=== PATIENT | male | born 1935 | race Caucasian/White ===

== ENCOUNTER 2017-03-30 06:15 | Emergency (ER) | payer MEDICARE, OTHER ==
[2017-03-30] MEDS ORDERED: HYDROmorphone 0.5 MG/0.5 ML Syringe ONE (06:52)
[2017-03-30] MEDS ORDERED: Ondansetron 4 MG/2 ML SDV ONE (06:52)
--- NOTE | 2017-03-30 14:17 | CT ---
CT abdomen and pelvis Technique: Multiple axial sections were obtained from above the kidneys inferiorly through the pubic symphysis. Intravenous and oral contrast was not utilized. Study has been performed as a ureteral stone protocol. Findings: Small calcifications are seen within the kidneys which are felt to represent combination of vascular calcification and nonobstructing renal calculi. No ureteral dilatation is seen. Cyst is identified within the upper left kidney measuring approximately 2.0 cm. Visualized portions of the liver and visualized portions of the spleen appear within normal limits. Surgical clips are seen from prior cholecystectomy. Pancreas appears within normal limits. Adrenal glands show no nodule. Aorta shows atherosclerotic change which continues into branch vessels and into the iliac vessels. No aneurysm is seen. Mesh material is seen anteriorly within the abdominal wall. Surgical clips are seen within the anterior abdomen. Surgical clips are also seen within the pelvis. Previous hemicolectomy is seen involving the transverse and left colon. Small abdominal wall hernia is seen to the right lateral side of the upper pelvis containing a loop of bowel. This does not appear to cause any bowel obstruction. Pelvic structures appear within normal limits. Prostate gland mildly enlarged. Bone window settings show scattered degenerative change within the spine. Impression: 1. No ureteral dilatation or ureteral stone is seen. 2. Nonobstructing renal calculi as well as vascular calcification within both kidneys. 3. Small lateral abdominal wall hernia on the right side within the upper right pelvis containing a loop of bowel. No bowel dilatation is seen and this small hernia is felt to cause no strangulation. 4. Previous abdominal surgery and other incidental findings. Diagnostic code #2 I agree with preliminary report issued by [facility] ([facility] preliminary report dictated on 03/30/17, 8:44 AM Central Time)
--- NOTE | 2017-04-02 08:15 | EDM.PDOC ---
ED HPI GENERAL MEDICAL PROBLEM - General Chief Complaint: Flank Pain Stated Complaint: BACK PAIN Time Seen by Provider: 03/30/17 07:00 Source of Information: Reports: Patient, Family History Limitations: Reports: No Limitations - History of Present Illness INITIAL COMMENTS - FREE TEXT/NARRATIVE: The patient presents with bilateral flank pain. This has been going on for months but the past few days it has gotten worse. He has renal failure and he is on dialysis. He went to dialysis this morning and had more pain and he did not think he could lay for the dialysis run so he came to the ER to be evaluated. He does not remember hurting his back. He has no fever, chills, cough, congestion, runny nose, chest pain, shortness of breath, abdominal pain, nausea or vomiting. He still makes urine and he has no hematuria or dysuria. He has no numbness or weakness. He has no bowel or bladder problems. Onset: Gradual Duration: Week(s): Location: Reports: Back (Both flanks) Quality: Reports: Sharp Severity: Moderate Improves with: Reports: None Worsens with: Reports: Movement Associated Symptoms: Reports: No Other Symptoms - Related Data Allergies Allergy/AdvReac Type Severity Reaction Status Date / Time morphine Allergy Confusion Verified 04/23/16 13:43 Home Meds: Home Meds Allopurinol [Zyloprim] 150 mg PO DAILY 04/23/16 [History] Aspirin [Halfprin] 324 mg PO BRK 04/23/16 [History] Clopidogrel Bisulfate [Plavix] 75 mg PO DAILY 04/23/16 [History] Metoprolol Tartrate [Lopressor] 12.5 mg PO BID 04/23/16 [History] Sevelamer Carbonate [Renvela] 800 mg PO TID 04/23/16 [History] amLODIPine [Norvasc] 5 mg PO DAILY 04/23/16 [History] Past Medical History HEENT History: Reports: Impaired Vision Cardiovascular History: Reports: Hypertension, Stents Other Cardiovascular History: pt had stent placement about 2 weeks ago Respiratory History: Reports: Other (See Below) Other Respiratory History: pleurisy Genitourinary History: Reports: Dialysis, Renal Disease - Infectious Disease History Infectious Disease History: Reports: Chicken Pox, Measles, Mumps - Past Surgical History GI Surgical History: Reports: Appendectomy Social & Family History - Tobacco Use Smoking Status *Q: Never Smoker - Caffeine Use Caffeine Use: Reports: None - Recreational Drug Use Recreational Drug Use: No ED ROS GENERAL - Review of Systems Review Of Systems: See Below Constitutional: Reports: No Symptoms HEENT: Reports: No Symptoms Respiratory: Reports: No Symptoms Cardiovascular: Reports: No Symptoms Endocrine: Reports: No Symptoms GI/Abdominal: Reports: No Symptoms : Reports: No Symptoms Musculoskeletal: Reports: Back Pain ED EXAM,LOWER BACK PAIN/INJURY - Physical Exam Exam: See Below Exam Limited By: No Limitations General Appearance: Alert, No Apparent Distress Ears: Normal External Exam Nose: Normal Inspection Head: Atraumatic, Normocephalic Neck: Normal Inspection Respiratory/Chest: No Respiratory Distress, Lungs Clear, Normal Breath Sounds Cardiovascular: Regular Rate, Rhythm, No Edema, No Murmur GI/Abdominal: Soft, Non-Tender, No Organomegaly, No Mass Back Exam: Other (Pain upon palpation to the lumbar and mid back) Extremities: Normal Inspection Neurological: Alert, No Motor/Sensory Deficits, Oriented x 3 Course - Orders/Labs/Meds Labs: Laboratory Tests 03/30/17 03/30/17 Range/Units 06:45 06:45 WBC 4.63 (4.23-9.07) K/mm3 RBC 3.35 L (4.63-6.08) M/mm3 Hgb 10.9 L (13.7-17.5) gm/L Hct 32.6 L (40.1-51.0) % MCV 97.3 H (79.0-92.2) fl MCH 32.5 H (25.7-32.2) pg MCHC 33.4 (32.2-35.5) g/dl RDW Std Deviation 44.2 H (35.1-43.9) fL Plt Count 176 (163-337) K/mm3 MPV 10.3 (9.4-12.3) fl Neut % (Auto) 60.1 (34.0-67.9) % Lymph % (Auto) 25.9 (21.8-53.1) % [place] % (Auto) 8.2 (5.3-12.2) % Eos % (Auto) 5.2 (0.8-7.0) Baso % (Auto) 0.4 (0.1-1.2) % Neut # (Auto) 2.78 (1.78-5.38) K/mm3 Lymph # (Auto) 1.20 L (1.32-3.57) K/mm3 [place] # (Auto) 0.38 (0.30-0.82) K/mm3 Eos # (Auto) 0.24 (0.04-0.54) K/mm3 Baso # (Auto) 0.02 (0.01-0.08) K/mm3 Sodium 142 (136-145) mEq/L Potassium 4.2 (3.5-5.1) mEq/L Chloride 106 (98-107) mEq/L Carbon Dioxide 20 L (21-32) mEq/L Anion Gap 20.2 H (5-15) BUN 86 H (7-18) mg/dL Creatinine 9.7 H (0.7-1.3) mg/dL Est Cr Clr Drug Dosing TNP Estimated GFR (MDRD) 5 (>60) mL/min BUN/Creatinine Ratio 8.9 L (14-18) Glucose 178 H (83-115) mg/dL Calcium 9.6 (8.5-10.1) mg/dL Total Bilirubin 0.2 (0.2-1.0) mg/dL AST 35 (15-37) U/L ALT 38 (16-63) U/L Alkaline Phosphatase 122 H (46-116) U/L Total Protein 7.0 (6.4-8.2) g/dl Albumin 3.2 L (3.4-5.0) g/dl Globulin 3.8 gm/dL Albumin/Globulin Ratio 0.8 L (1-2) Meds: Medications Discontinued Medications Generic Name Dose Route Start Last Admin Trade Name Freq PRN Reason Stop Dose Admin Hydromorphone HCl Confirm 03/30/17 06:52 Dilaudid Administered 03/30/17 06:53 Dose 0.5 mg .ROUTE .STK-MED ONE Ondansetron HCl Confirm 03/30/17 06:52 Zofran Administered 03/30/17 06:53 Dose 4 mg .ROUTE .STK-MED ONE - Re-Assessments/Exams Free Text/Narrative Re-Assessment/Exam: 04/02/17 08:15 I took over for Dr Rylie Lal. I ordered an IV, labs, and a CT of his abdomen and pelvis without contrast to look for a kidney stone. His WBC was normal. his Hgb was low at 10.9. His creatinine was elevated at 9.7. His BUN was elevated at 86. His glucose was elevated at 178. His alk phos was elevated at 122. The CT shows no ureteral dilatation or ureteral stone is seen. Nonobstructing renal calculi as well as vascular calcification within both kidneys. Small lateral abdominal wall hernia on the right side within the upper right pelvis containing a loop of bowel. No bowel dilatation is seen and this small hernia is felt to cause no strangulation. Previous abdominal surgery and other incidental findings. He did get something for pain and he feels better. I will discharge him back to dialysis. They are ready for him. 04/02/17 08:20 I gave him a prescription for flexeril and some hydrocodone. Departure - Departure Time of Disposition: 12:00 Disposition: Home, Self-Care 01 Condition: Good Clinical Impression: Chronic kidney disease with end stage renal failure on dialysis, Abdominal wall hernia Low back pain Qualifiers: Chronicity: acute Back pain laterality: bilateral Sciatica presence: without sciatica Qualified Code(s): M54.5 - Low back pain - Discharge Information Referrals: Phillip Simmons MD [Primary Care Provider] - Forms: ED Department Discharge Additional Instructions: See hand written discharge instructions.
== END 2017-03-30 08:15 | disposition home or self-care (01) ==
LOC: JD.ED 06:15
DX: I12.0 Hypertensive chronic kidney disease with stage 5 chronic kidney disease or end stage renal disease (principal); N18.6 End stage renal disease; M54.5 Low back pain; Z99.2 Dependence on renal dialysis; K43.9 Ventral hernia without obstruction or gangrene; Z95.5 Presence of coronary angioplasty implant and graft; Z79.82 Long term (current) use of aspirin; Z79.02 Long term (current) use of antithrombotics/antiplatelets; Z79.899 Other long term (current) drug therapy; Z88.5 Allergy status to narcotic agent
CPT/HCPCS: 36415; 74176; 80053; 85025; 96374; 96375; 99284; J1170; J2405; 99283

== ENCOUNTER 2019-03-29 06:51 | Emergency (ER) | payer MEDICARE, OTHER ==
[2019-03-29] MEDS ORDERED: Sodium Chloride 0.9% 1,000 ML IV STA (07:32)
[2019-03-29] MEDS ORDERED: Ondansetron 4 MG/2 ML SDV IVPUSH ONE (07:32)
[2019-03-29] MEDS ORDERED: Sodium Chloride 0.9% 10 ML Syringe FLUSH PRN (07:32)
[2019-03-29] MEDS ORDERED: HYDROmorphone 0.5 MG/0.5 ML Syringe IVPUSH ONE ×3 (07:33→09:30)
[2019-03-29] MEDS ORDERED: Diatrizoate Meglumine/Diatrizoate Sodium 37% 120 ML Bottle PO ONE (07:40)
[2019-03-29] MEDS ORDERED: Sodium Chloride 0.9% 500 ML IV ONE (07:45)
--- NOTE | 2019-03-29 08:03 | EDM.PDOC ---
ED HPI GENERAL MEDICAL PROBLEM - General Chief Complaint: Abdominal Pain Stated Complaint: ABD PAIN Time Seen by Provider: 03/29/19 07:29 Source of Information: Reports: Patient History Limitations: Reports: No Limitations - History of Present Illness INITIAL COMMENTS - FREE TEXT/NARRATIVE: The patient presents with left lower abdominal pain. He ate some peanuts last night and shortly after he had left lower abdominal pain. The pain is constant and severe. He has nausea and vomiting. He has no fever or chills. He has no chest pain or shortness of breath. He has no diarrhea. He has a history of diverticulitis. He also has renal failure and he is on dialysis. He gets dialysis on Wednesday, and Wednesday. Onset: Sudden Duration: Day(s): (Last night) Location: Reports: Abdomen Quality: Reports: Sharp Severity: Severe Improves with: Reports: None Worsens with: Reports: None Associated Symptoms: Reports: Nausea/Vomiting. Denies: Chest Pain, Cough, Fever /Chills, Headaches, Shortness of Breath Left Abdomen Pain Score (Numeric/FACES): 2 - Related Data Allergies Allergy/AdvReac Type Severity Reaction Status Date / Time morphine Allergy Confusion Verified 03/29/19 07:19 Home Meds: Home Meds Allopurinol [Zyloprim] 300 mg PO DAILY 04/23/16 [History] Aspirin [Halfprin] 81 mg PO BRK 04/23/16 [History] Clopidogrel Bisulfate [Plavix] 75 mg PO DAILY 04/23/16 [History] Metoprolol Tartrate [Lopressor] 25 mg PO BID 04/23/16 [History] Sevelamer Carbonate [Renvela] 2,400 mg PO TID 04/23/16 [History] amLODIPine [Norvasc] 5 mg PO DAILY 04/23/16 [History] Cinacalcet [Sensipar] 30 mg PO DAILY 07/15/17 [History] Past Medical History HEENT History: Reports: Impaired Vision Other HEENT History: wears eyeglasses. Cardiovascular History: Reports: Hypertension, Stents Other Cardiovascular History: pt had stent placement about 2 weeks ago Respiratory History: Reports: Other (See Below) Other Respiratory History: pleurisy Gastrointestinal History: Reports: Diverticulosis Genitourinary History: Reports: Dialysis, Prostate Disorder, Renal Disease Other Genitourinary History: inherited kidney disease. Dialysis [facility]. Radiation for prostate cancer. Hematologic History: Reports: Iron Deficiency Oncologic (Cancer) History: Reports: Prostate - Infectious Disease History Infectious Disease History: Reports: Chicken Pox, Measles, Mumps - Past Surgical History GI Surgical History: Reports: Appendectomy, Cholecystectomy, Colonoscopy, Other (See Below) Other GI Surgeries/Procedures: removed part of colon due to diverticulitis. Musculoskeletal Surgical History: Reports: Knee Replacement Social & Family History - Tobacco Use Smoking Status *Q: Never Smoker Second Hand Smoke Exposure: No - Caffeine Use Caffeine Use: Reports: Soda - Recreational Drug Use Recreational Drug Use: No ED ROS GENERAL - Review of Systems Review Of Systems: See Below Constitutional: Reports: No Symptoms HEENT: Reports: No Symptoms Respiratory: Reports: No Symptoms Cardiovascular: Reports: No Symptoms Endocrine: Reports: No Symptoms GI/Abdominal: Reports: Abdominal Pain, Nausea, Vomiting. Denies: Diarrhea : Reports: No Symptoms Musculoskeletal: Reports: No Symptoms Skin: Reports: No Symptoms ED EXAM, GI/ABD - Physical Exam Exam: See Below Exam Limited By: No Limitations General Appearance: Alert, No Apparent Distress Ears: Normal External Exam Nose: Normal Inspection Head: Atraumatic, Normocephalic Neck: Normal Inspection Respiratory/Chest: No Respiratory Distress, Lungs Clear, Normal Breath Sounds Cardiovascular: Regular Rate, Rhythm, No Edema, No Murmur GI/Abdominal Exam: Soft, No Organomegaly, No Mass, Tender (Moderate tenderness to the left upper and lower abdomen) Extremities: No Pedal Edema Neurological: Alert, Oriented, No Motor/Sensory Deficits Course - Vital Signs Last Recorded V/S: Last Vital Signs Temp 98.5 F 03/29/19 09:45 Pulse 80 03/29/19 09:45 Resp 20 03/29/19 09:45 BP 160/58 H 03/29/19 09:45 Pulse Ox 98 03/29/19 09:45 - Orders/Labs/Meds Orders: Active Orders 24 hr Category Date Time Status Peripheral IV Care [RC] . DIRECTED Care 03/29/19 07:32 Active Sodium Chloride 0.9% [Saline Flush] Med 03/29/19 07:32 Active 10 ml FLUSH ASDIRECTED PRN ED Antiemetic Medication Reflex [OM.PC] Stat Oth 03/29/19 07:32 Ordered NG [Nasogastric Orogastric Tube Insertion] [OM.PC] Oth 03/29/19 09:51 Ordered Routine Peripheral IV Insertion Adult [OM.PC] Stat Ot 03/29/19 07:32 Ordered Medication Orders Sodium Chloride (Saline Flush) 10 ml FLUSH ASDIRECTED PRN PRN Reason: Keep Vein Open Labs: Laboratory Tests 03/29/19 03/29/19 Range/Units 07:15 07:15 WBC 9.62 H (4.23-9.07) K/mm3 RBC 3.61 L (4.63-6.08) M/mm3 Hgb 11.0 L (13.7-17.5) gm/dl Hct 34.0 L (40.1-51.0) % MCV 94.2 H D (79.0-92.2) fl MCH 30.5 (25.7-32.2) pg MCHC 32.4 (32.2-35.5) g/dl RDW Std Deviation 45.7 H (35.1-43.9) fL Plt Count 329 D (163-337) K/mm3 MPV 10.5 (9.4-12.3) fl Neut % (Auto) 82.7 H (34.0-67.9) % Lymph % (Auto) 11.5 L (21.8-53.1) % [place] % (Auto) 5.3 (5.3-12.2) % Eos % (Auto) 0.1 L (0.8-7.0) Baso % (Auto) 0.2 (0.1-1.2) % Neut # (Auto) 7.95 H (1.78-5.38) K/mm3 Lymph # (Auto) 1.11 L (1.32-3.57) K/mm3 [place] # (Auto) 0.51 (0.30-0.82) K/mm3 Eos # (Auto) 0.01 L (0.04-0.54) K/mm3 Baso # (Auto) 0.02 (0.01-0.08) K/mm3 Sodium 139 (136-145) mEq/L Potassium 5.0 (3.5-5.1) mEq/L Chloride 100 (98-107) mEq/L Carbon Dioxide 25 (21-32) mEq/L Anion Gap 19.0 H (5-15) BUN 56 H D (7-18) mg/dL Creatinine 6.6 H D (0.7-1.3) mg/dL Est Cr Clr Drug Dosing 8.87 mL/min Estimated GFR (MDRD) 8 (>60) mL/min BUN/Creatinine Ratio 8.5 L (14-18) Glucose 164 H (83-115) mg/dL Calcium 10.2 H (8.5-10.1) mg/dL Total Bilirubin 0.4 (0.2-1.0) mg/dL AST 20 (15-37) U/L ALT 19 (16-63) U/L Alkaline Phosphatase 219 H (46-116) U/L Total Protein 8.3 H (6.4-8.2) g/dl Albumin 4.0 (3.4-5.0) g/dl Globulin 4.3 gm/dL Albumin/Globulin Ratio 0.9 L (1-2) Lipase 295 (73-393) U/L Meds: Medications Generic Name Dose Route Start Last Admin Trade Name Freq PRN Reason Stop Dose Admin Sodium Chloride 10 ml 03/29/19 07:32 Saline Flush FLUSH ASDIRECTED PRN Keep Vein Open Discontinued Medications Generic Name Dose Route Start Last Admin Trade Name Freq PRN Reason Stop Dose Admin Diatrizoate Meglum/Diatrizoate Sod 90 ml 03/29/19 07:40 03/29/19 09:07 Gastrografin 37% PO 03/29/19 07:41 90 ml ONETIME ONE Administration Hydromorphone HCl 0.5 mg 03/29/19 07:33 03/29/19 07:37 Dilaudid IVPUSH 03/29/19 07:34 0.5 mg ONETIME ONE Administration Hydromorphone HCl 0.5 mg 03/29/19 08:00 03/29/19 08:04 Dilaudid IVPUSH 03/29/19 08:01 0.5 mg ONETIME ONE Administration Hydromorphone HCl 0.5 mg 03/29/19 09:30 03/29/19 09:40 Dilaudid IVPUSH 03/29/19 09:31 0.5 mg ONETIME ONE Administration Sodium Chloride 1,000 mls @ 1,000 mls/hr 03/29/19 07:32 03/29/19 07:43 Normal Saline IV 03/29/19 08:31 1,000 mls/hr .BOLUS STA Administration Sodium Chloride 500 mls @ 500 mls/hr 03/29/19 07:45 Normal Saline IV 03/29/19 08:44 .BOLUS ONE Ondansetron HCl 4 mg 03/29/19 07:32 03/29/19 07:35 Zofran IVPUSH 03/29/19 07:33 4 mg ONETIME ONE Administration - Re-Assessments/Exams Free Text/Narrative Re-Assessment/Exam: 03/29/19 08:03 I ordered an IV NS 500ml bolus, zofran 4mg IV, dilaudid 0.5mg IV, labs, UA and a CT of his abdomen and pelvis without IV contrast but with oral contrast. He started drinking the contrast and he had more pain so I ordered dilaudid 0.5mg IV and I will have him try to drink more. If he cannot, then I will do it without contrast. 03/29/19 09:[address] shows dilated small bowel into the left pelvis. Surrounding inflammatory change noted around portions of the mid and distal small bowel within the left abdomen. Surgical clips are seen in the area of transition. Obstruction most likely due to adhesions. Diffusely sclerotic spine with scattered lytic lesions. Findings most likely due to osseous metastatic disease. Other findings believed to be incidental as described above. 03/29/19 10:03 I have ordered an NG tube. The patient has a history of prostate cancer and was treated with chemo and radiation years ago. He did have a follow up appointment last Wednesday, but he missed it because he was sick. I cannot admit him here because he is in renal failure and the nephrologists want their patients in [place] if they are to be admitted. I called [facility] in [place]. 03/29/19 10:08 His WBC is elevated at 9.62. His Hgb is low at 11. His anion gap is elevated at 19. His BUN is elevated at 56. His creatinine is elevated at 6.6. His glucose is elevated at 164. His alk phos is elevated at 219. His lipase is negative. 03/29/19 10:[address] Morales the hospitalist leather production machine operator and she accepted the patient. She wanted me to ask code status and the patient is full code. Departure - Departure Time of Disposition: 10:45 Disposition: DC/Tfer to Acute Hospital 02 Condition: Poor Clinical Impression: Small bowel obstruction, Osteolytic lesion due to metastasis - Discharge Information Referrals: Goyo Ugarte MD [Primary Care Provider] - Forms: ED Department Discharge Sepsis Event Note - Evaluation Sepsis Screening Result: No Definite Risk - Focused Exam Vital Signs: Vital Signs Temp Pulse Resp BP Pulse Ox 03/29/19 09:45 98.5 F 80 20 160/58 H 98 03/29/19 07:05 97.6 F 88 20 181/82 H 100 Date Exam was Performed: 03/29/19 Time Exam was Performed: 10:42 - My Orders Last 24 Hours: My Active Orders 03/29/19 07:32 Peripheral IV Care [RC] . DIRECTED Sodium Chloride 0.9% [Saline Flush] 10 ml FLUSH ASDIRECTED PRN ED Antiemetic Medication Reflex [OM.PC] Stat Peripheral IV Insertion Adult [OM.PC] Stat 03/29/19 09:51 NG [Nasogastric Orogastric Tube Insertion] [OM.PC] Routine - Assessment/Plan Last 24 Hours: My Active Orders 03/29/19 07:32 Peripheral IV Care [RC] . DIRECTED Sodium Chloride 0.9% [Saline Flush] 10 ml FLUSH ASDIRECTED PRN ED Antiemetic Medication Reflex [OM.PC] Stat Peripheral IV Insertion Adult [OM.PC] Stat 03/29/19 09:51 NG [Nasogastric Orogastric Tube Insertion] [OM.PC] Routine
--- NOTE | 2019-03-29 09:43 | CT ---
CT abdomen and pelvis Technique: Multiple axial sections were obtained from above the dome of the diaphragm inferiorly through the pubic symphysis. Intravenous contrast not utilized. Oral contrast has been given. Comparison: Previous CT abdomen and pelvis exam of 03/30/17. Findings: Visualized lung bases show nothing acute. Noncontrast appearance of the liver and spleen appears within normal limits. Gastroesophageal reflux of contrast noted within the distal esophagus. Adrenal glands show no nodule. Kidneys are atrophic without hydronephrosis. Pancreas is within normal limits. Surgical clips are seen from prior cholecystectomy. Aorta and iliac vessels show atherosclerotic calcification without aneurysm. No retroperitoneal adenopathy is seen. Appendix not visualized with certainty. Surgical clips are seen within the right lower abdomen. Diffuse small bowel wall dilatation is seen. This occurs down to the left side of the pelvis and is felt compatible with mid to distal small bowel obstruction. There is some inflammatory change being seen around the mid and distal small bowel loops which may relate to the bowel obstruction. Etiology for this bowel obstruction is not visualized and is most likely due to adhesion as some adjacent surgical clips are seen within the left abdomen. No additional abnormality is seen. Small fat-containing inguinal hernias are noted. Bone window settings were reviewed which show diffuse osteosclerotic change throughout the lumbar spine with multiple small lytic lesions. Findings presumably due to metastatic bone disease. Impression: 1. Dilated small bowel into the left pelvis. Surrounding inflammatory change noted around portions of the mid and distal small bowel within the left abdomen. Surgical clips are seen in the area of transition. Obstruction most likely due to adhesions. 2. Diffusely sclerotic spine with scattered lytic lesions. Findings most likely due to osseous metastatic disease. 3. Other findings believed to be incidental as described above. Diagnostic code #9 This report was dictated in [place] Standard Time
[2019-03-29 09:47] VITALS: PULSE 80
[2019-03-29 11:36] VITALS: BP 141/57
== END 2019-03-29 12:02 ==
LOC: JD.ED 06:51
DX: K56.609 Unspecified intestinal obstruction, unspecified as to partial versus complete obstruction (principal); M89.50 Osteolysis, unspecified site; I10 Essential (primary) hypertension; Z90.49 Acquired absence of other specified parts of digestive tract; Z79.82 Long term (current) use of aspirin; Z79.02 Long term (current) use of antithrombotics/antiplatelets; Z79.899 Other long term (current) drug therapy; Z88.5 Allergy status to narcotic agent
CPT/HCPCS: 36415; 43752; 74176; 80053; 81001; 83690; 85025; 96361; 96374; 96375; 96376; 99285; J1170; J2405; J7030; Q9963

== ENCOUNTER 2019-04-15 11:50 | Emergency (ER) | payer MEDICARE, OTHER ==
[2019-04-15] MEDS ORDERED: Sodium Chloride 0.9% 10 ML Syringe FLUSH PRN (12:28)
--- NOTE | 2019-04-15 12:33 | EDM.PDOC ---
ED HPI GENERAL MEDICAL PROBLEM - General Chief Complaint: Gastrointestinal Problem Stated Complaint: VOMITING Time Seen by Provider: 04/15/19 12:20 Source of Information: Reports: Patient, Old Records History Limitations: Reports: No Limitations - History of Present Illness INITIAL COMMENTS - FREE TEXT/NARRATIVE: David is an 83-year-old male who sent over for dialysis following 2 episodes of vomiting and hypotension. Patient was seen in ER on March 29. He was found to have a bowel obstruction. He is a dialysis patient therefore he was sent to [place]. Review of his discharge summary from [facility] in [place] shows that they attempted conservative management with an NG tube. After he failed to improve over [address] Garcia performed an exploratory laparotomy, lysis of adhesions and repair of enterotomy on 31 March. He overall did well and was discharged. He was seen by cardiology and nephrology. Today he presented for dialysis. He had almost is complete run of dialysis, missed about 30 minutes. He developed abdominal pain, 10 out of 10 reportedly and vomited 2 times. Reportedly was hypotensive with the lowest blood pressures 70/40. He states at this time the abdominal pain has resolved after his episodes of emesis. He denies any hematemesis. Denies any diarrhea states that his last bowel movement was last night. States it was pretty loose. No blood in stool. He has been passing gas today. He denies any fevers, lightheadedness, syncope or any chest pain. Primary care provider is Dr. Ugarte Onset: Today, Sudden Location: Reports: Abdomen. Denies: Chest Abdominal Pain Score (Numeric/FACES): 3 - Related Data Allergies Allergy/AdvReac Type Severity Reaction Status Date / Time morphine Allergy Confusion Verified 04/15/19 12:09 Home Meds: Home Meds Aspirin [Halfprin] 81 mg PO BID 04/23/16 [History] Metoprolol Tartrate [Lopressor] 25 mg PO BID 04/23/16 [History] Sevelamer Carbonate [Renvela] 1,600 mg PO TID 04/23/16 [History] amLODIPine [Norvasc] 2.5 mg PO DAILY 04/23/16 [History] Acetaminophen [Tactinal] 650 mg PO Q6H PRN 04/15/19 [History] Cinacalcet [Sensipar] 30 mg PO DAILY 01/04/20 [History] Isosorbide Mononitrate [Imdur] 30 mg PO DAILY 04/15/19 [History] Lisinopril [Zestril] 2.5 mg PO DAILY 04/15/19 [History] Metoclopramide [Reglan] 5 mg PO QID 04/15/19 [History] Nitroglycerin [Nitrostat] 0.4 mg SL ASDIRECTED PRN 04/15/19 [History] Sennosides/Docusate Sodium [Senna-Docusate Sodium Tablet] 2 tab PO DAILY PRN 07/30 [History] Simvastatin [Zocor] 20 mg PO BEDTIME 04/15/19 [History] Past Medical History HEENT History: Reports: Impaired Vision Other HEENT History: wears eyeglasses. Cardiovascular History: Reports: Hypertension, Stents Other Cardiovascular History: pt had stent placement about 2 weeks ago Respiratory History: Reports: Other (See Below) Other Respiratory History: pleurisy Gastrointestinal History: Reports: Bowel Obstruction, Diverticulosis Genitourinary History: Reports: Dialysis, Prostate Disorder, Renal Disease Other Genitourinary History: inherited kidney disease. Dialysis . Radiation for prostate cancer. Hematologic History: Reports: Iron Deficiency Oncologic (Cancer) History: Reports: Prostate - Infectious Disease History Infectious Disease History: Reports: Chicken Pox, Measles, Mumps - Past Surgical History GI Surgical History: Reports: Appendectomy, Cholecystectomy, Colonoscopy, Small Bowel, Other (See Below) Other GI Surgeries/Procedures: removed part of colon due to diverticulitis, bowel obstruction Musculoskeletal Surgical History: Reports: Knee Replacement Social & Family History - Tobacco Use Smoking Status *Q: Never Smoker - Caffeine Use Caffeine Use: Reports: None - Recreational Drug Use Recreational Drug Use: No ED ROS GENERAL - Review of Systems Review Of Systems: See Below Constitutional: Denies: Fever Cardiovascular: Denies: Chest Pain GI/Abdominal: Reports: Abdominal Pain, Diarrhea, Nausea, Vomiting (x2), Other ( + flatus today). Denies: Hematemesis, Hematochezia, Melena ED EXAM, GI/ABD - Physical Exam Exam: See Below Exam Limited By: No Limitations General Appearance: Alert, WD/WN, No Apparent Distress Respiratory/Chest: No Respiratory Distress, Lungs Clear, Normal Breath Sounds Cardiovascular: Normal Peripheral Pulses, Regular Rate, Rhythm, No Murmur GI/Abdominal Exam: Normal Bowel Sounds, Soft, No Distention, Tender (mild tenderness associated with incision from recent surgery, surgical incision is closed with no erythema or drainage) Neurological: Alert, Oriented, Normal Cognition Psychiatric: Normal Affect, Normal Mood Skin Exam: Warm, Dry, Normal Color EKG INTERPRETATION EKG Date: 04/15/19 Time: 12:38 Rhythm: NSR Rate (Beats/Min): 72 [place]: Normal P-Wave: Present QRS: Normal ST-T: Normal QT: Normal EKG Interpretation Comments: NSR of [address] segment changes. Reviewed by myself and Dr. kiser. Course - Vital Signs Last Recorded V/S: Last Vital Signs Temp 97.3 F 04/15/19 15:48 Pulse 77 04/15/19 15:48 Resp 17 04/15/19 15:48 BP 108/46 L 04/15/19 15:48 Pulse Ox 93 L 04/15/19 15:48 - Orders/Labs/Meds Orders: Active Orders 24 hr Category Date Time Status Cardiac Monitoring [RC] . DIRECTED Care 04/15/19 12:28 Active EKG Documentation Completion [RC] ASDIRECTED Care 04/15/19 12:28 Active Peripheral IV Care [RC] . DIRECTED Care 04/15/19 12:28 Active Abdomen Series w Chest 1V [CR] Stat Exams 04/15/19 12:28 Taken Peripheral IV Insertion Adult [OM.PC] Routine Oth 04/15/19 12:28 Ordered EKG 12 Lead [EK] Stat Ther 04/15/19 12:28 Ordered Labs: Laboratory Tests 04/15/19 04/15/19 04/15/19 Range/Units 13:25 13:25 13:25 WBC 8.40 (4.23-9.07) K/mm3 RBC 3.16 L (4.63-6.08) M/mm3 Hgb 9.5 L D (13.7-17.5) gm/dl Hct 30.1 L (40.1-51.0) % MCV 95.3 H (79.0-92.2) fl MCH 30.1 (25.7-32.2) pg MCHC 31.6 L (32.2-35.5) g/dl RDW Std Deviation 44.0 H (35.1-43.9) fL Plt Count 451 H D (163-337) K/mm3 MPV 10.0 (9.4-12.3) fl Neut % (Auto) 73.0 H (34.0-67.9) % Lymph % (Auto) 14.3 L (21.8-53.1) % [place] % (Auto) 10.6 (5.3-12.2) % Eos % (Auto) 1.8 (0.8-7.0) Baso % (Auto) 0.2 (0.1-1.2) % Neut # (Auto) 6.13 H (1.78-5.38) K/mm3 Lymph # (Auto) 1.20 L (1.32-3.57) K/mm3 [place] # (Auto) 0.89 H (0.30-0.82) K/mm3 Eos # (Auto) 0.15 (0.04-0.54) K/mm3 Baso # (Auto) 0.02 (0.01-0.08) K/mm3 Sodium 138 (136-145) mEq/L Potassium 3.6 (3.5-5.1) mEq/L Chloride 96 L (98-107) mEq/L Carbon Dioxide 31 (21-32) mEq/L Anion Gap 14.6 (5-15) BUN 18 D (7-18) mg/dL Creatinine 4.5 H D (0.7-1.3) mg/dL Est Cr Clr Drug Dosing 13.01 mL/min Estimated GFR (MDRD) 13 (>60) mL/min BUN/Creatinine Ratio 4.0 L (14-18) Glucose 113 (83-115) mg/dL Calcium 9.0 (8.5-10.1) mg/dL Total Bilirubin 0.2 (0.2-1.0) mg/dL AST 19 (15-37) U/L ALT 17 (16-63) U/L Alkaline Phosphatase 155 H (46-116) U/L Troponin I < 0.017 (0.00-0.056) ng/mL C-Reactive Protein 2.1 H* (<1.0) mg/dL Total Protein 7.9 (6.4-8.2) g/dl Albumin 3.1 L (3.4-5.0) g/dl Globulin 4.8 gm/dL Albumin/Globulin Ratio 0.7 L (1-2) Lipase 1258 H (73-393) U/L Meds: Medications Discontinued Medications Generic Name Dose Route Start Last Admin Trade Name Freq PRN Reason Stop Dose Admin Hydromorphone HCl 0.5 mg 04/15/19 13:37 04/15/19 13:44 Dilaudid IVPUSH 04/15/19 13:38 0.5 mg ONETIME ONE Administration Ondansetron HCl 4 mg 04/15/19 13:38 04/15/19 13:42 Zofran IVPUSH 04/15/19 13:39 4 mg ONETIME ONE Administration Sodium Chloride 10 ml 04/15/19 12:28 04/15/19 13:44 Saline Flush FLUSH 10 ml ASDIRECTED PRN Administration Keep Vein Open - Radiology Interpretation Free Text/Narrative:: flat and upright abdominal xray shows air fluid lines CT abdomen and pelvis Technique: Multiple axial sections were obtained from above the dome of the diaphragm inferiorly through the pubic symphysis. Oral contrast has been given. No intravenous contrast was utilized. Findings: Slightly prominent small bowel loops are noted. Small bowel wall thickening is seen with diffuse surrounding inflammatory change. Some of these findings are seen on prior study but findings have increased in prominence. Findings most likely due to diffuse small bowel enteritis which included an etiology of ischemia and infection. Other findings: Visualized lung bases show nothing acute. Noncontrast appearance of the liver shows no focal abnormality. Extensive coronary artery calcification is partially visualized. Spleen is within normal limits. Diffuse atrophy of the kidneys is noted. Several cysts appear to be present within the kidneys. Pancreas is within normal limits. Aorta shows diffuse atherosclerotic calcification which continues into the iliac vessels. Multiple surgical clips are seen within the abdomen and pelvis. Anterior abdominal wall graft is noted. Small fat-containing right inguinal hernia is noted. No free fluid is seen. Impression: 1. Slightly prominent small bowel loops with wall thickening and surrounding inflammatory change. Findings are mildly increased in prominence from prior exam. Findings most likely represent diffuse small bowel enteritis with differential including infection as well as ischemia. 2. Other findings believed to be nonacute an as described above. Diagnostic code #3 This report was dictated in [place] Standard Time - Re-Assessments/Exams Free Text/Narrative Re-Assessment/Exam: 01/04/20 16:04 flat and upright abdominal xray came back with air-fluid lines. Therefor a CT of the abdomen was ordered. Once he started drinking the contrast complained of abdominal pain therefore 0.5mg of Dilaudid and 4 of Zofran was ordered. He has not had any vomiting since entering the ER. I discussed the patient's CT scan with Dr. Garcia, surgery on-call at [facility] in [place] who cared for him to he was in the hospital in March. she does not feel that this represents an ischemic bowel picture. She feels the changes on his CT are likely from his recent surgery and adhesions. Patient is denying any pain at this time, his abdomen is soft with only mild tenderness. CRP is only mildly elevated. White blood cell count is within normal limits. I do feel that the patient is safe to go home today. We'll discharge him home with close follow-up with his primary care provider. Discharge instructions as documented. Departure - Departure Time of Disposition: 16:13 Disposition: Home, Self-Care 01 Condition: Fair Clinical Impression: Abdominal pain - Discharge Information *PRESCRIPTION DRUG MONITORING PROGRAM REVIEWED*: No *COPY OF PRESCRIPTION DRUG MONITORING REPORT IN PATIENT ODALIS: No Instructions: Abdominal Pain, Adult, [id number] Referrals: Goyo Ugarte MD [Primary Care Provider] - Forms: ED Department Discharge Additional Instructions: Continue with your current medications and plan of care. Follow-up with your PCP Wednesday for a recheck. Please return to the ER should your symptoms change or worsen. Sepsis Event Note - Evaluation Sepsis Screening Result: No Definite Risk - Focused Exam Vital Signs: Vital Signs Temp Pulse Resp BP Pulse Ox 04/15/19 15:48 97.3 F 77 17 108/46 L 93 L 04/15/19 12:06 97.6 F 70 16 125/73 100 Date Exam was Performed: 04/15/19 Time Exam was Performed: 21:21 - My Orders Last 24 Hours: My Active Orders 04/15/19 12:28 Cardiac Monitoring [RC] . DIRECTED EKG Documentation Completion [RC] ASDIRECTED Peripheral IV Care [RC] . DIRECTED Abdomen Series w Chest 1V [CR] Stat Peripheral IV Insertion Adult [OM.PC] Routine EKG 12 Lead [EK] Stat - Assessment/Plan Last 24 Hours: My Active Orders 04/15/19 12:28 Cardiac Monitoring [RC] . DIRECTED EKG Documentation Completion [RC] ASDIRECTED Peripheral IV Care [RC] . DIRECTED Abdomen Series w Chest 1V [CR] Stat Peripheral IV Insertion Adult [OM.PC] Routine EKG 12 Lead [EK] Stat
[2019-04-15] MEDS ORDERED: HYDROmorphone 0.5 MG/0.5 ML Syringe IVPUSH ONE (13:37)
[2019-04-15] MEDS ORDERED: Ondansetron 4 MG/2 ML SDV IVPUSH ONE (13:38)
--- NOTE | 2019-04-15 15:11 | CT ---
CT abdomen and pelvis Technique: Multiple axial sections were obtained from above the dome of the diaphragm inferiorly through the pubic symphysis. Oral contrast has been given. No intravenous contrast was utilized. Findings: Slightly prominent small bowel loops are noted. Small bowel wall thickening is seen with diffuse surrounding inflammatory change. Some of these findings are seen on prior study but findings have increased in prominence. Findings most likely due to diffuse small bowel enteritis which included an etiology of ischemia and infection. Other findings: Visualized lung bases show nothing acute. Noncontrast appearance of the liver shows no focal abnormality. Extensive coronary artery calcification is partially visualized. Spleen is within normal limits. Diffuse atrophy of the kidneys is noted. Several cysts appear to be present within the kidneys. Pancreas is within normal limits. Aorta shows diffuse atherosclerotic calcification which continues into the iliac vessels. Multiple surgical clips are seen within the abdomen and pelvis. Anterior abdominal wall graft is noted. Small fat-containing right inguinal hernia is noted. No free fluid is seen. Impression: 1. Slightly prominent small bowel loops with wall thickening and surrounding inflammatory change. Findings are mildly increased in prominence from prior exam. Findings most likely represent diffuse small bowel enteritis with differential including infection as well as ischemia. 2. Other findings believed to be nonacute an as described above. Diagnostic code #3 This report was dictated in [place] Standard Time
[2019-04-15 15:48] VITALS: BP 108/46; PULSE 77
--- NOTE | 2019-04-16 07:23 | CR ---
Abdominal series: Supine and upright views of the abdomen were obtained as well as frontal view of the chest. Comparison: Prior chest x-ray of 12/02/16 no prior abdominal plain film study, previous CT abdomen and pelvis study of 03/29/19. 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 This slightly narrows the transverse tracheal measurements. Heart size is normal. Tortuous thoracic aorta is seen. Lungs are clear with no acute parenchymal change. Previous sternotomy is noted. Multiple surgical clips are seen within the abdomen and pelvis. Bowel gas pattern appears within normal limits. Vascular calcification is seen. Scattered degenerative change is noted within the spine. Impression: 1. Findings as noted above. 2. Nothing acute is seen on abdominal series. Diagnostic code #2 This report was dictated in [place] Standard Time
== END 2019-04-15 16:33 | disposition home or self-care (01) ==
LOC: JD.ED 11:50
DX: R10.9 Unspecified abdominal pain (principal); I10 Essential (primary) hypertension; Z79.899 Other long term (current) drug therapy; Z88.5 Allergy status to narcotic agent; Z79.82 Long term (current) use of aspirin
CPT/HCPCS: 36415; 74022; 74176; 80053; 83690; 84484; 85025; 86140; 93005; 96374; 96375; 99284; J1170; J2405; 93010

== ENCOUNTER 2020-03-09 12:51 | Emergency (ER) | payer MEDICARE, OTHER ==
[2020-03-09 13:08] VITALS: PULSE 60
--- NOTE | 2020-03-09 14:00 | EDM.PDOC ---
ED HPI GENERAL MEDICAL PROBLEM - General Chief Complaint: General Stated Complaint: BLEEDING WON'T STOP AFTER DIALYSIS Time Seen by Provider: 03/09/20 12:59 Source of Information: Reports: Patient, RN Notes Reviewed - History of Present Illness INITIAL COMMENTS - FREE TEXT/NARRATIVE: 84 yr old male comes over from dialysis with post dialysis bleeding L shunt. He has a pressure dressing and a clamp over area of bleeding on arrival to ED. Has not been ill in any way. Not on any current blood thinner type meds other than heparin associated with dialysis. - Related Data Allergies Allergy/AdvReac Type Severity Reaction Status Date / Time morphine Allergy Severe Confusion Verified 03/09/20 13:00 Home Meds: Home Meds Aspirin [Halfprin] 81 mg PO BID 04/23/16 [History] Metoprolol Tartrate [Lopressor] 25 mg PO BID 04/23/16 [History] Sevelamer Carbonate [Renvela] 1,600 mg PO TID 04/23/16 [History] amLODIPine [Norvasc] 2.5 mg PO DAILY 04/23/16 [History] Acetaminophen [Tactinal] 650 mg PO Q6H PRN 04/15/19 [History] Cinacalcet [Sensipar] 30 mg PO DAILY 04/15/19 [History] Isosorbide Mononitrate [Imdur] 30 mg PO DAILY 04/15/19 [History] Metoclopramide [Reglan] 5 mg PO QID 04/15/19 [History] Nitroglycerin [Nitrostat] 0.4 mg SL ASDIRECTED PRN 04/15/19 [History] Sennosides/Docusate Sodium [Senna-Docusate Sodium Tablet] 2 tab PO DAILY PRN 04/15/19 [History] Simvastatin [Zocor] 20 mg PO BEDTIME 04/15/19 [History] lisinopriL [Zestril] 2.5 mg PO DAILY 04/15/19 [History] Past Medical History HEENT History: Reports: Impaired Vision Other HEENT History: wears eyeglasses. Cardiovascular History: Reports: Hypertension, Stents Other Cardiovascular History: pt had stent placement about 2 weeks ago Respiratory History: Reports: Other (See Below) Other Respiratory History: pleurisy Gastrointestinal History: Reports: Bowel Obstruction, Diverticulosis Genitourinary History: Reports: Dialysis, Prostate Disorder, Renal Disease Other Genitourinary History: inherited kidney disease. Dialysis . Radiation for prostate cancer. Hematologic History: Reports: Iron Deficiency Oncologic (Cancer) History: Reports: Prostate - Infectious Disease History Infectious Disease History: Reports: Chicken Pox, Measles, Mumps - Past Surgical History GI Surgical History: Reports: Appendectomy, Cholecystectomy, Colonoscopy, Small Bowel, Other (See Below) Other GI Surgeries/Procedures: removed part of colon due to diverticulitis, bowel obstruction Musculoskeletal Surgical History: Reports: Knee Replacement Social & Family History - Tobacco Use Tobacco Use Status *Q: Never Tobacco User - Caffeine Use Caffeine Use: Reports: Coffee - Recreational Drug Use Recreational Drug Use: No ED ROS GENERAL - Review of Systems Review Of Systems: See Below Constitutional: Denies: Fever, Chills HEENT: Reports: No Symptoms Respiratory: Reports: No Symptoms Cardiovascular: Reports: No Symptoms GI/Abdominal: Reports: No Symptoms Musculoskeletal: Reports: Other (bleeding L arm) Neurological: Reports: No Symptoms ED EXAM, GENERAL - Physical Exam Exam: See Below General Appearance: Alert Head: Atraumatic Neck: Supple Respiratory/Chest: No Respiratory Distress, Lungs Clear Cardiovascular: Regular Rate, Rhythm Extremities: Other (Pressure dressing L arm with clamp over L shunt area, presumed area of prior bleeding. No active bleeding at time of exam, good distal pulses, good cap refill fingers and thumb L hand) Neurological: Alert, Oriented, No Motor/Sensory Deficits Course - Vital Signs Last Recorded V/S: Last Vital Signs Temp 96.8 F L 03/09/20 14:55 Pulse 60 03/09/20 14:55 Resp 18 03/09/20 14:55 BP 160/71 H 03/09/20 14:55 Pulse Ox 100 03/09/20 14:55 - Re-Assessments/Exams Free Text/Narrative Re-Assessment/Exam: 03/09/20 13:55 Pt came over from dialysis with pressure dressing and clamp. When his dressing was removed it did start up bleeding again. Quick clot gauze and pressure dressing applied and clamp over the dressing. No further bleeding at time of reexam a few minutes ago. Will watch him a bit longer and than leg him go home. 03/09/20 19:19 There was no further bleeding. Discharge instr. as documented. Departure - Departure Time of Disposition: 13:57 Disposition: Home, Self-Care 01 Condition: Fair Clinical Impression: Bleeding from dialysis shunt Qualifiers: Encounter type: initial encounter Qualified Code(s): T82.838A - Hemorrhage due to vascular prosthetic devices, implants and grafts, initial encounter - Discharge Information Referrals: Goyo Ugarte MD [Primary Care Provider] - Forms: ED Department Discharge Additional Instructions: Leave pressure dressing on until you return for dialysis this next Wednesday. Return to ED as needed if that does start bleeding again through the dressing. Sepsis Event Note (ED) - Evaluation Sepsis Screening Result: No Definite Risk - Focused Exam Vital Signs: Vital Signs Temp Pulse Resp BP Pulse Ox 03/09/20 14:55 96.8 F L 60 18 160/71 H 100 03/09/20 13:06 97.6 F 60 20 158/65 H 98
[2020-03-09 15:00] VITALS: BP 160/71
== END 2020-03-09 14:55 | disposition home or self-care (01) ==
LOC: JD.ED 12:51
DX: T82.838A Hemorrhage due to vascular prosthetic devices, implants and grafts, initial encounter (principal); I10 Essential (primary) hypertension; E11.9 Type 2 diabetes mellitus without complications; Z88.5 Allergy status to narcotic agent; Z79.82 Long term (current) use of aspirin; Z79.899 Other long term (current) drug therapy; Z99.2 Dependence on renal dialysis
CPT/HCPCS: 99283

== ENCOUNTER 2021-09-02 02:47 | Emergency (ER) | payer MEDICARE, OTHER ==
[2021-09-02 03:06] VITALS: BP 167/83; PULSE 69
== END 2021-09-02 05:50 | disposition other institution (70) ==
LOC: JD.ED 02:47
DX: J81.0 Acute pulmonary edema (principal); I12.0 Hypertensive chronic kidney disease with stage 5 chronic kidney disease or end stage renal disease; N18.6 End stage renal disease; Z90.49 Acquired absence of other specified parts of digestive tract; Z88.6 Allergy status to analgesic agent; Z79.899 Other long term (current) drug therapy; Z79.82 Long term (current) use of aspirin; Z20.822 Contact with and (suspected) exposure to COVID-19
CPT/HCPCS: 36415; 71045; 80053; 83880; 85025; 93005; 99285; U0002; 93010

== ENCOUNTER 2022-02-21 10:29 | Emergency (ER) | payer MEDICARE, OTHER ==
[2022-02-21 12:24] VITALS: BP 131/52; PULSE 66
== END 2022-02-21 16:51 | disposition home or self-care (01) ==
LOC: JD.ED 10:29
DX: M79.89 Other specified soft tissue disorders (principal); I10 Essential (primary) hypertension; Z88.6 Allergy status to analgesic agent; Z79.899 Other long term (current) drug therapy; Z90.49 Acquired absence of other specified parts of digestive tract
CPT/HCPCS: 93971-26-LT; 93971-LT; 99283

== ENCOUNTER 2022-10-13 04:54 | Emergency (ER) | payer MEDICARE, OTHER ==
[2022-10-13] MEDS ORDERED: Furosemide 100 MG/10 ML SDV IVPUSH ONE (05:51)
[2022-10-13 05:58] LABS: INR 1.02; PROTHROMBIN TIME 10.9 SECONDS (9.7-12.0)
[2022-10-13 05:59] LABS: PTT,PARTIAL THROMBOPLSTIN TIME 28.2 SECONDS (21.7-31.4)
[2022-10-13 06:09] VITALS: BP 133/71; PULSE 81
[2022-10-13 06:12] LABS: A/G RATIO 0.8 (1-2); ALANINE AMINOTRANSFERASE,ALT 21 U/L (16-63); ALBUMIN 3.7 g/dl (3.4-5.0); ALKALINE PHOSPHATASE 205 U/L (46-116); ANION GAP 21.5 (5-15); ASPARTATE AMNIOTRANSFERASE,AST 22 U/L (15-37); BILIRUBIN TOTAL 0.4 mg/dL (0.2-1.0); BLOOD UREA NITROGEN,BUN 92 mg/dL (7-18); BUN/CREATININE RATIO 7.8 (14-18); C-REACTIVE PROTEIN 2.4 mg/dL (<1.0); CALCIUM 6.3 mg/dL (8.5-10.1); CARBON DIOXIDE,CO2 24 mEq/L (21-32); CHLORIDE,CL 102 mEq/L (98-107); CREATININE 11.8 mg/dL (0.7-1.3); ESTIMATED GFR 4 mL/min (>60); GLUCOSE RANDOM 134 mg/dL (70-99); MAGNESIUM 1.5 mg/dL (1.8-2.4); PROTEIN TOTAL,TP 8.5 g/dl (6.4-8.2); SODIUM,NA 141 mEq/L (136-145); TROPONIN I HIGH SENSITIVITY 62 pg/mL (<=76)
[2022-10-13 06:16] LABS: POTASSIUM,K 6.5 mEq/L (3.5-5.1)
[2022-10-13 06:17] LABS: BASOPHILS ABSOLUTE AUTO 0.03 K/mm3 (0.01-0.08); BASOPHILS PERCENT AUTO 0.2 % (0.1-1.2); EOSINOPHILS ABSOLUTE AUTO 0.17 K/mm3 (0.04-0.54); EOSINOPHILS PERCENT AUTO 1.4 (0.8-7.0); HEMATOCRIT 33.1 % (40.1-51.0); HEMOGLOBIN 10.6 gm/dl (13.7-17.5); IMMATURE GRAN ABSOLUTE AUTO 0.02 K/mm3 (0.00-0.10); IMMATURE GRAN PERCENT AUTO 0.2 % (<=1.0); LYMPHOCYTES ABSOLUTE AUTO 1.56 K/mm3 (1.32-3.57); LYMPHOCYTES PERCENT AUTO 12.9 % (21.8-53.1); MEAN CORPUSCULAR HEMOGLOBIN 30.8 pg (25.7-32.2); MEAN CORPUSCULAR VOLUME 96.2 fl (79.0-92.2); MEAN PLATELET VOLUME 10.9 fl (9.4-12.3); MONOCYTES ABSOLUTE AUTO 0.82 K/mm3 (0.30-0.82); MONOCYTES PERCENT AUTO 6.8 % (5.3-12.2); NEUTROPHILS ABSOLUTE AUTO 9.54 K/mm3 (1.78-5.38); NEUTROPHILS PERCENT AUTO 78.5 % (34.0-67.9); PLATELET COUNT,PLT 345 K/mm3 (163-337); RED BLOOD CELL COUNT 3.44 M/mm3 (4.63-6.08); WHITE BLOOD CELL COUNT,WBC 12.14 K/mm3 (4.23-9.07)
== END 2022-10-13 06:45 | disposition other institution (70) ==
LOC: JD.ED 04:54
DX: J81.1 Chronic pulmonary edema (principal); I12.9 Hypertensive chronic kidney disease with stage 1 through stage 4 chronic kidney disease, or unspecified chronic kidney disease; N18.9 Chronic kidney disease, unspecified; E87.5 Hyperkalemia; E87.20 Acidosis, unspecified; Z79.899 Other long term (current) drug therapy; Z99.2 Dependence on renal dialysis; Z88.5 Allergy status to narcotic agent
CPT/HCPCS: 36415; 71045; 80053; 82553; 83605; 83735; 83880; 84484; 85025; 85610; 85730; 86140; 93005; 96374; 99285; J1940; 93010; 99284

== ENCOUNTER 2024-03-16 02:10 | Emergency (ER) | payer MEDICARE, OTHER ==
[2024-03-16 02:36] VITALS: BP 147/82; PULSE 88
[2024-03-16] MEDS: Oxymetazoline 0.05% Nasal Spray 30 ML Bottle NAS ONE (02:48)
== END 2024-03-16 03:30 | disposition home or self-care (01) ==
LOC: JD.ED 02:10
DX: R04.0 Epistaxis (principal); I10 Essential (primary) hypertension; Z90.49 Acquired absence of other specified parts of digestive tract; Z79.899 Other long term (current) drug therapy; Z88.5 Allergy status to narcotic agent
CPT/HCPCS: 30901; 99283; A9270; 99282